=== PATIENT | male | born 1945 | race Caucasian/White ===

== ENCOUNTER 2020-09-13 15:21 | Inpatient (IN) | payer OTHER, BC ==
[2020-09-13 16:34] LABS: BASO % 0.4 % (0-2.0); EOS % 0.1 % (0-4.5); HEMATOCRIT 43.4 % (35.4-49); HEMOGLOBIN 14.9 GM/dL (11.7-16.9); LYMPH % 4.3 % (8-40); MCH 31.5 pg (25.7-33.7); MCHC 34.4 g/dl (32.0-35.9); MEAN CELL VOLUME 91.7 fl (80-96); MEAN PLT VOLUME 7.6 fl (7.5-11.1); MONO % 3.4 % (3.8-10.2); NEUT % 91.8 % (42.8-82.8); PLATELET COUNT 220 K/MM3 (134-434); RBC 4.73 M/mm3 (4.00-5.60); RDW 12.9 % (11.9-15.9)
[2020-09-13] MEDS ORDERED: morphine CARPU-JECT 2 MG/1 ML DISP.SYRIN IVPUSH ONE ×2 (16:45→17:15)
[2020-09-13 17:04] LABS: ALBUMIN 4.5 g/dl (3.4-5.0); BLOOD UREA NITROGEN 27.6 mg/dL (7-18); CALCIUM 9.7 mg/dL (8.5-10.1)
[2020-09-13 17:07] LABS: CREATININE 1.2 mg/dL (0.55-1.3)
[2020-09-13 17:08] LABS: BILIRUBIN,TOTAL 0.7 mg/dL (0.2-1)
[2020-09-13 17:23] LABS: ANISOCYTOSIS 2+; MACROCYTOSIS 2+; PLATELET ESTIMATE NORMAL
[2020-09-13 17:25] LABS: EPI CELLS 6 /uL (0-25.1); HYALINE CASTS 1 /uL (0-3.1); URINE APPEARANCE CLEAR; URINE BACTERIA 13 /uL (0-1359); URINE BILIRUBIN NEGATIVE (NEGATIVE); URINE COLOR YELLOW; URINE GLUCOSE (UA) NEGATIVE (NEGATIVE); URINE KETONE 1+ (NEGATIVE); URINE LEUK ESTERASE NEGATIVE (NEGATIVE); URINE NITRITE NEGATIVE (NEGATIVE); URINE PROTEIN 2+ (NEGATIVE); URINE RBC 479 /uL (0-23.9); URINE WBC 8 /uL (0-25.8)
[2020-09-13] MEDS ORDERED: SODIUM CHLORIDE 0.9% 500 ML INFUS.BAG IV ONE (19:18)
[2020-09-13] MEDS ORDERED: TAMSULOSIN HCL 0.4 MG CAP PO ONE (19:19)
[2020-09-13] MEDS ORDERED: TAMSULOSIN HCL 0.4 MG CAP ONE (19:57)
[2020-09-13] MEDS ORDERED: CEFTRIAXONE 1 GM/50 ML BAG ONE (19:58)
[2020-09-13] MEDS: CEFTRIAXONE 1 GM in DEXTROSE 5%-WATER - 50 ML IVPB SCH (20:15)
[2020-09-13] MEDS ORDERED: ACETAMINOPHEN 1000 MG/100 ML BAG IVPB PRN (21:19)
[2020-09-13] MEDS ORDERED: morphine SULFATE 4 MG/ML VIAL IVPUSH PRN (21:22)
[2020-09-13 23:08] VITALS: BMI 25.4
[2020-09-14] MEDS: TAMSULOSIN HCL 0.4 MG CAP PO SCH (08:32)
[2020-09-14] MEDS ORDERED: cefTRIAXone SODIUM 1 GM VIAL ONE (09:26)
[2020-09-14] MEDS ORDERED: DEXTROSE 5%-WATER - 50 ML IVPB ONE (09:26)
[2020-09-14] MEDS: CEFTRIAXONE 1 GM in DEXTROSE 5%-WATER - 50 ML IVPB SCH (09:28)
[2020-09-14] MEDS: DEXTROSE 5%-0.45% SALINE 1,000 ML IV SCH (17:48)
[2020-09-14] MEDS ORDERED: ATORVASTATIN CA 10 MG TABLET (FP) PO SCH (22:00)
[2020-09-15] MEDS ORDERED: ACETAMINOPHEN 325 MG TABLET (FP) PO PRN (01:09)
[2020-09-15] MEDS: DEXTROSE 5%-0.45% SALINE 1,000 ML IV SCH (01:19)
[2020-09-15 08:56] VITALS: BP 116/85; PULSE 80; TEMP 98.2
[2020-09-15] MEDS ORDERED: DEXTROSE 5%-WATER - 50 ML IVPB ONE (09:22)
[2020-09-15] MEDS ORDERED: cefTRIAXone SODIUM 1 GM VIAL ONE (09:22)
[2020-09-15] MEDS: CEFTRIAXONE 1 GM in DEXTROSE 5%-WATER - 50 ML IVPB SCH (09:37)
[2020-09-15] MEDS: TAMSULOSIN HCL 0.4 MG CAP PO SCH ×2 (09:38→11:56)
[2020-09-15 11:37] LABS: BASO % 0.7 % (0-2.0); EOS % 3.1 % (0-4.5); HEMATOCRIT 41.4 % (35.4-49); HEMOGLOBIN 14.5 GM/dL (11.7-16.9); LYMPH % 21.2 % (8-40); MCHC 34.9 g/dl (32.0-35.9); MEAN CELL VOLUME 91.7 fl (80-96); MEAN PLT VOLUME 7.2 fl (7.5-11.1); MONO % 10.3 % (3.8-10.2); NEUT % 64.7 % (42.8-82.8); PLATELET COUNT 206 K/MM3 (134-434); RBC 4.51 M/mm3 (4.00-5.60); RDW 13.1 % (11.9-15.9)
[2020-09-15 12:10] LABS: BLOOD UREA NITROGEN 14.2 mg/dL (7-18); CALCIUM 8.6 mg/dL (8.5-10.1)
[2020-09-15 12:12] LABS: ALBUMIN 3.9 g/dl (3.4-5.0)
[2020-09-15 12:14] LABS: CREATININE 0.8 mg/dL (0.55-1.3)
[2020-09-15 12:16] LABS: BILIRUBIN,TOTAL 0.6 mg/dL (0.2-1); TOT PROT 7.2 g/dl (6.4-8.2)
== END 2020-09-15 14:44 | disposition home or self-care (01) | DRG 694 ==
LOC: JER 15:21 → JERBED 18:17 → J6S 22:28
PROVIDERS: ADMIT Hospitalist; ATTEND Family Medicine
DX: N13.2 Hydronephrosis with renal and ureteral calculous obstruction (principal); K80.20 Calculus of gallbladder without cholecystitis without obstruction; E78.5 Hyperlipidemia, unspecified; R31.9 Hematuria, unspecified
CPT/HCPCS: 36415; 71045-TC-FY; 74176-TC; 76775-TC; 76856-TC; 80053; 81003; 83690; 85025; 87086; 93005; 93010; 99285-25; C9803; U0003; U0005

== ENCOUNTER 2020-10-01 05:19 | Day surgery (SDC) | payer OTHER, BC ==
[2020-09-30 18:14] VITALS: BMI 25.8
[2020-10-01] MEDS ORDERED: MIDAZOLAM HCL 2 MG/2 ML SINGLE DOSE VIAL ONE (14:25)
[2020-10-01] MEDS ORDERED: PROPOFOL 20 ML ONE (14:25)
[2020-10-01] MEDS ORDERED: GENTAMICIN SO4 80 MG/2 ML VIAL ONE (15:53)
[2020-10-01] MEDS ORDERED: DEXAMETHASONE SOD PHOSPHATE 4 MG/1 ML VIAL ONE (15:53)
[2020-10-01] MEDS ORDERED: ceFAZolin SODIUM 1 GM VIAL ONE ×2 (15:53)
[2020-10-01] MEDS ORDERED: HYDROmorphone HCl 2 MG/ML VIAL SQ ONE (16:09)
[2020-10-01] MEDS ORDERED: PROMETHAZINE HCL 25 MG/1 ML VIAL IVPUSH PRN (16:25)
[2020-10-01] MEDS ORDERED: ONDANSETRON 4 MG/2 ML VIAL IVPUSH PRN (16:25)
[2020-10-01] MEDS ORDERED: ACETAMINOPHEN 325 MG TABLET (FP) PO PRN (16:30)
[2020-10-01] MEDS ORDERED: LACTATED RINGERS SOLUTION 1,000 ML IV SCH (16:30)
[2020-10-01] MEDS ORDERED: oxyCODONE HCL 5 MG TABLET PO PRN ×2 (16:30→18:11)
[2020-10-01] MEDS ORDERED: oxyCODONE HCL 5 MG TABLET ONE ×2 (17:40→18:10)
[2020-10-01] MEDS ORDERED: CEFTRIAXONE 1 GM in DEXTROSE 5%-WATER - 50 ML IVPB ONE (19:15)
[2020-10-02 06:47] VITALS: BP 117/73; PULSE 85; TEMP 98.2
== END 2020-10-02 11:16 | disposition home or self-care (01) ==
LOC: JASUSAT 05:19 → J8W 19:32 → JASUSAT 10-02 11:16
PROVIDERS: ATTEND Urology
PROC: 0TC38ZZ Extirpation of Matter from Right Kidney Pelvis, Via Natural or Artificial Opening Endoscopic (ICD-10-PCS; principal; 2020-10-01 14:00)
PROC: 0T768DZ Dilation of Right Ureter with Intraluminal Device, Via Natural or Artificial Opening Endoscopic (ICD-10-PCS; 2020-10-01 14:00)
PROC: BT1DYZZ Fluoroscopy of Right Kidney, Ureter and Bladder using Other Contrast (ICD-10-PCS; 2020-10-01 14:00)
DX: N13.2 Hydronephrosis with renal and ureteral calculous obstruction (principal)
CPT/HCPCS: 36415; 82360; 87086; 88108; 88300-TC; 94760; C9803; U0003; U0005

== ENCOUNTER 2023-10-26 12:29 | Emergency (ER) | payer OTHER, BC ==
[2023-10-26 13:14] VITALS: BP 172/103; PULSE 97; RESP 18; TEMP 98.8; BMI 25.8
[2023-10-26] MEDS ORDERED: ACETAMINOPHEN INJECTION 100 ML IVPB ONE (13:24)
[2023-10-26 13:30] LABS: EPITHELIAL CELLS 0-5 /hpf
[2023-10-26 13:33] LABS: HEMATOCRIT 46.4 % (35.4-49); HEMOGLOBIN 15.3 G/dL (11.7-16.9); MCH 30.8 pg (25.7-33.7); MEAN CELL VOLUME 93.3 fl (80-96); MEAN PLT VOLUME 7.7 fl (7.5-11.1); PLATELET COUNT 197.9 10^3/uL (134-434); RBC 4.97 10^6/uL (4.00-5.60); RDW 13.6 % (11.9-15.9); WHITE BLOOD COUNT 10.7 10^3/uL (4.0-10.8)
[2023-10-26] MEDS: SODIUM CHLORIDE 1,000 ML IV STA (13:37)
[2023-10-26] MEDS: ACETAMINOPHEN 1000 MG/100 ML BAG IVPB ONE (13:38)
[2023-10-26 13:42] LABS: ALBUMIN 4.7 g/dl (3.4-5.0); BILIRUBIN,TOTAL 0.8 mg/dl (0.2-1); CREATININE 1.2 mg/dl (0.6-1.3); TOT PROT 7.4 g/dl (6.4-8.2)
[2023-10-26 13:55] LABS: PLATELET ESTIMATE ADEQUATE
[2023-10-26] MEDS ORDERED: IBUPROFEN 400 MG TABLET (FP) PO ONE (16:02)
[2023-10-26] MEDS: IBUPROFEN 400 MG TABLET (FP) PO ONE (16:10)
== END 2023-10-26 16:28 | disposition home or self-care (01) ==
LOC: FER 12:29
PROC: 3E033NZ Introduction of Analgesics, Hypnotics, Sedatives into Peripheral Vein, Percutaneous Approach (ICD-10-PCS; principal; 2023-10-26)
PROC: 3E0337Z Introduction of Electrolytic and Water Balance Substance into Peripheral Vein, Percutaneous Approach (ICD-10-PCS; 2023-10-26)
DX: N13.2 Hydronephrosis with renal and ureteral calculous obstruction (principal); R10.31 Right lower quadrant pain
CPT/HCPCS: 36415; 74176-TC; 80053; 81003; 81015; 83690; 85025; 87086; 99285-25; J0131